=== PATIENT | female | born 1975 | race African-American/Black ===

== ENCOUNTER 2017-02-01 12:26 | Emergency (ER) | payer MEDICAID ==
[~2017-02-01] VITALS: Ht 162.6 cm; Wt 92.5 kg
[2017-02-01] MEDS ORDERED: HYDROCHLOROTHIAZIDE 25MG TABLET PO ONE (14:00)
[2017-02-01 14:19] VITALS: BP 184/97
== END 2017-02-01 15:11 | disposition home or self-care (01) ==
LOC: ER 13:02
DX: I16.0 Hypertensive urgency (principal); F17.210 Nicotine dependence, cigarettes, uncomplicated
CPT/HCPCS: 99283; Z7610

== ENCOUNTER 2021-12-19 15:58 | Emergency (ER) | payer MEDICAID ==
[~2021-12-19] VITALS: Ht 162.6 cm; Wt 102.0 kg
[2021-12-19] MEDS ORDERED: ACETAMINOPHEN 325MG TABLET PO STA (16:45)
[2021-12-19] MEDS ORDERED: SODIUM CHLORIDE 0.9% 1,000 ML IV ONE (16:45)
[2021-12-19] MEDS ORDERED: ALBUTEROL (0.5%) 2.5MG/0.5ML NEB HHN ONE ×3 (17:00→21:00)
[2021-12-19 18:02] LABS: EOSINOPHILS % 1.3 % (0.0-5.0); HEMATOCRIT. 32.9 % (36.0-48.0); HEMOGLOBIN. 10.3 g/dL (12.0-16.0); LYMPHOCYTES % 8.7 % (20.0-50.0); MEAN CORPUSCULAR HEMOGLOBIN 23.4 pg (28.0-32.0); MEAN CORPUSCULAR VOLUME 75.1 fL (81.0-99.0); MEAN PLATELET VOLUME 8.1 fl (7.4-10.4); MONOCYTES % 5.6 % (2.0-8.0); NEUTROPHILS % 83.4 % (40.0-76.0); PLATELET 284 x1000/uL (130-400); RED BLOOD CELL COUNT 4.37 mill/uL (4.2-5.4); RED CELL DISTRIBUTION WIDTH 20.9 % (11.6-14.6)
[2021-12-19 18:08] LABS: CHLORIDE 102 mEq/L (98-107)
[2021-12-19 18:11] LABS: HCG SCREEN NEGATIVE
[2021-12-19] MEDS ORDERED: PREDNISONE 20MG TABLET PO ONE (19:45)
[2021-12-19] MEDS ORDERED: ALBUTEROL (0.5%) 2.5MG/0.5ML NEB HHN NR ×2 (19:46→19:47)
[2021-12-19] MEDS ORDERED: ALBU6.7H3 INH (20:58)
[2021-12-19] MEDS ORDERED: ACET-2708 MT (20:58)
[2021-12-19] MEDS ORDERED: AMLO5TAB88 MT (20:58)
[2021-12-19] MEDS ORDERED: PRED10TA23 MT (20:58)
[2021-12-19] MEDS ORDERED: AMLODIPINE 5MG TABLET PO ONE (21:00)
[2021-12-19 22:17] VITALS: BP 182/89
== END 2021-12-19 23:10 | disposition home or self-care (01) ==
LOC: ER 15:58
DX: B34.9 Viral infection, unspecified (principal); I10 Essential (primary) hypertension; Z20.822 Contact with and (suspected) exposure to COVID-19; Z98.890 Other specified postprocedural states; Z13.9 Encounter for screening, unspecified; Z91.14 Patient's other noncompliance with medication regimen
CPT/HCPCS: 36415; 71045; 80053; 83605; 84703; 85025; 87040; 87426; 87804; 94640; 96360; 96361; 99285; C9803; J7030; J7512; Z7610

== ENCOUNTER 2021-12-23 17:49 | Emergency (ER) | payer MEDICAID ==
[~2021-12-23] VITALS: Ht 162.6 cm; Wt 103.0 kg
[~2021-12-23 17:49] MED LIST: ACET-2708 MT; ALBU6.7H3 INH; AMLO5TAB88 MT; PRED10TA23 MT
[2021-12-24] MEDS ORDERED: HYDRALAZINE 20MG/ML VIAL IV ONE (00:45)
[2021-12-24 01:07] LABS: BASOPHILS % 0.6 % (0.0-2.0); EOSINOPHILS % 1.9 % (0.0-5.0); HEMATOCRIT. 30.4 % (36.0-48.0); HEMOGLOBIN. 9.6 g/dL (12.0-16.0); LYMPHOCYTES % 32.5 % (20.0-50.0); MEAN CORPUSCULAR HEMOGLOBIN 23.7 pg (28.0-32.0); MEAN CORPUSCULAR VOLUME 74.8 fL (81.0-99.0); MONOCYTES % 6.8 % (2.0-8.0); NEUTROPHILS % 58.2 % (40.0-76.0); PLATELET 391 x1000/uL (130-400); RED BLOOD CELL COUNT 4.07 mill/uL (4.2-5.4); RED CELL DISTRIBUTION WIDTH 19.8 % (11.6-14.6)
[2021-12-24 01:10] LABS: CHLORIDE 104 mEq/L (98-107)
[2021-12-24 02:00] VITALS: BP 150/56
== END 2021-12-24 02:49 | disposition home or self-care (01) ==
LOC: ER 17:49
DX: I10 Essential (primary) hypertension (principal); Z98.890 Other specified postprocedural states
CPT/HCPCS: 36415; 80053; 85025; 93005; 96374; 99284; J0360